=== PATIENT | male | born 1985 | race Caucasian/White ===

== ENCOUNTER 2021-07-20 17:53 | Emergency (ER) | payer OTHER, SELFPAY ==
[2021-07-20 17:57] VITALS: BP 134/83; PULSE 79; RESP 16; TEMP 35.8; O2SAT 97; BMI 29.0
--- NOTE | 2021-07-20 19:37 | RAD_ITS ---
INDICATION: chest pain EXAMINATION/TECHNIQUE: X-RAY - XR Chest 1 View COMPARISON: None. FINDINGS: The lungs are clear. The cardiomediastinal silhouette is unremarkable. No pleural effusion or pneumothorax. No acute osseous abnormalities. RAD/Chest 1 View (Portable) IMPRESSION: No acute radiographic abnormalities. Electronically Signed: Daniel Tello MD at 21:18 EST Tel , Service support ,
--- NOTE | 2021-07-20 19:37 | EKG12_ITS ---
Test Reason : PALPITATIONS Blood Pressure : / mmHG Vent. Rate : 075 BPM Atrial Rate : 075 BPM P-R Int : 164 ms QRS Dur : 096 ms QT Int : 394 ms P-R-T Axes : 053 055 026 degrees QTc Int : 439 ms Normal sinus rhythm T wave abnormality, consider anterior ischemia Abnormal ECG Confirmed by ELDON OSBORN, LORI ([id number]), commissioning editor TAB EARL ([id number]) on 07/23/2021 9:21:52 AM Referred By: MONA Confirmed By:LORI COLÓN MD
[2021-07-20 19:54] VITALS: BP 134/89; PULSE 80; RESP 17; O2SAT 99
[2021-07-20 20:03] LABS: Absolute Lymphocyte Count 1.67 X10^3/uL (0.83-4.51); Absolute Neutrophil Count 5.8 X10^3/uL (2.0-7.7); Basophil# 0.02 X10^3/uL; Basophil% 0.2 % (0-1); Eosinophil# 0.12 X10^3/uL; Eosinophils% 1.5 % (0-5); Hematocrit 43.9 % (40-54); Hemoglobin 14.9 g/dL (13.0-16.5); Lymphocyte # 1.67 X10^3/ul (0.83-4.51); Lymphocyte % 20.7 % (19-41); Mean Corp Hgb Conc 33.9 g/dL (32-36); Mean Corpuscular Hgb 28.7 pg (27.0-32.0); Mean Corpuscular Volume 84.4 fL (80-94); Mean Platelet Vol. 8.6 fl (6.2-12.0); Monocyte# 0.41 X10^3/uL; Monocyte% 5.1 % (0-10); NRBC Flagged by Analyzer 0 % (0-5); Neutrophil % 72.1 % (47-70); Platelet Count 238 K/mm3 (150-450); RBC Distribution Width CV 12.2 % (11.6-14.6); RBC Distribution Width SD 37.5 fl (35.1-43.9); White Blood Count 8.1 K/mm3 (4.4-11.0)
[2021-07-20 20:04] VITALS: O2SAT 100
--- NOTE | 2021-07-20 20:19 | EDS_ITS ---
HPI History of Present Illness Chief Complaint: Palpitations Informant: patient Onset/Context/Timing Onset: Days Current Severity: Mild Maximum Severity: Moderate Narrative Narrative: Patient presents with cough and congestion along with palpitations. He states he was working out last Tuesday, 6 days ago, when he started noticing his heart racing. He stopped for a few minutes and it seemed to go away and he finished what he was doing. That evening after getting home he started feeling like he was getting a cold. He did a home Covid test on Tuesday that was negative and was tested in urgent care yesterday and was negative. His and son also have upper respiratory symptoms. Patient does note a rash to his armpits and groin area that seems to come and go. He reports subjective intermittent fevers. PFSH PFSH Medical History no medical history no medical history Home Medications famotidine [Pepcid] 40 mg PO DAILY #10 tab 07/20/21 [Rx Last Taken Unknown] prednisone 40 mg PO DAILY #8 tab 07/20/21 [Rx Last Taken Unknown] Allergy/AdvReac Type Severity Reaction Status Date / Time cephalexin Allergy Other Verified 07/20/21 17:56 corn AdvReac Food Verified 07/20/21 17:56 Allergy watermelon AdvReac Hives Verified 07/20/21 17:56 Social History Smoking Status: Never smoker ROS ROS ED Constitutional Constitutional ED: Reports fever(s) and subjective; Denies chills Eyes Eyes: Denies change in vision ENT ENT ED: Reports other Details: Congestion ; Denies sore throat Cardiovascular Cardiovascular: Denies chest pain Respiratory/Chest Respiratory/Chest: Reports cough and dyspnea Gastrointestinal Gastrointestinal: Denies abdominal pain, diarrhea, nausea or vomiting Genitourinary Genitourinary ED: Denies dysuria Musculoskeletal Musculoskeletal: Denies back pain Integumentary Reports rash Neurologic Neurologic: Denies headache(s) or weakness Allergic/Immunologic Allergic/Immunologic ED: Denies urticaria EXAM Physical Exam Const Vital Signs: 07/20/21 17:57 07/20/21 19:54 07/20/21 20:04 Temperature 96.4 F L Temperature Source Temporal Pulse Rate 79 80 Respiratory Rate 16 17 Respiratory Effort Normal Non-Labored Blood Pressure 134/83 H 134/89 H Blood Pressure Mean 100 104 Pulse Ox 97 99 100 Oxygen Delivery Method Room Air Room Air Room Air 07/20/21 21:00 Temperature Temperature Source Pulse Rate 76 Respiratory Rate 15 Respiratory Effort Blood Pressure 121/78 H Blood Pressure Mean 92 Pulse Ox 99 Oxygen Delivery Method Room Air Positive well nourished and well developed General Appearance ED: well developed HEENT Reports moist mucous membranes Eyes PERRL and EOMs intact bilaterally Neck supple Chest Wall inspection of chest normal and palpation of chest normal Resp normal respiratory effort and clear to auscultation bilaterally Cardio regular rate and regular rhythm GI normal to inspection, nondistended, normoactive bowel sounds and non-tender Palpation: soft Extremity normal to inspection Neuro oriented x3 Sensorium / Orientation: alert Skin Skin Narrative: Patchy, nonraised, erythematous lesions noted on the arms. No sign of secondary bacterial infection. Does not appear consistent with yeast infection. MDM MDM MDM Narrative Medical decision making narrative: E.g., chest x-ray, lab work obtained. Patient was given Benadryl, Pepcid, Solu-Medrol. Lab Data Attestation: I reviewed the patient's lab results. Labs: Laboratory Results - last 24 hr 07/20/21 07/20/21 07/20/21 19:57 19:57 19:57 WBC 8.1 RBC 5.20 Hgb 14.9 Hct 43.9 MCV 84.4 MCH 28.7 MCHC 33.9 RDW Std Deviation 37.5 RDW Coeff of Miriam 12.2 Plt Count 238 MPV 8.6 Immature Gran % (Auto) 0.400 Neut % (Auto) 72.1 H Lymph % (Auto) 20.7 [place] % (Auto) 5.1 Eos % (Auto) 1.5 Baso % (Auto) 0.2 Absolute Neuts (auto) 5.8 Absolute Lymphs (auto) 1.67 Nucleated RBC % 0 Sodium 138 Potassium 3.8 Chloride 106 Carbon Dioxide 27.0 Anion Gap 5 BUN 10 Creatinine 0.88 Estim Creat Clear Calc 104.72 Est GFR (MDRD) Af Amer 126 Est GFR (MDRD) Non-Af 104 BUN/Creatinine Ratio 11.3 Glucose 148 H Calcium 8.6 Troponin I High Sens 5 TSH 1.85 Radiography Chest X-Ray - ED: 1 View, Read by ED Physician and No Acute Disease Diagnostic Testing: Clinical Impression(s) from Imaging Studies Chest X-Ray 07/20/21 19:37 IMPRESSION: No acute radiographic abnormalities. Electronically Signed: Daniel Tello MD at 21:18 EST Tel , Service support , EKG Initial EKG: Attestation: I personally reviewed and interpreted this EKG as follows: Interpretation: Sinus Rhythm (Sinus at 75 with no acute ischemia.) Treatment and Re-Evaluation Comments:: On repeat evaluation patient resting comfortably. Rash is resolved at this time. Heart rate has been stable in the 70s. I did discuss with the patient that he may have a viral illness that causes rash. He also states that he believes he was exposed to a meal with a lot of cornstarch in it and he does have a corn allergy. He is not sure if this may be causing his rash. Patient will be given Pepcid and prednisone for home. Return instructions provided. Discharge Plan Triage Chief Complaint: Palpitations Other Complaint: Cough Rash ED Provider: Katelyn Martínez Dx/Rx/DC Orders Clinical Impression: Heart palpitations, Rash Instructions: ED Hives (Adult), ED Palpitations Prescriptions: New prednisone 20 mg tablet 40 mg PO DAILY Qty: 8 RF: 0 famotidine [Pepcid] 40 mg tablet 40 mg PO DAILY Qty: 10 RF: 0 Primary Care Provider: Care Physician,No Primary Referrals: Car Hernandez DO [NON-STAFF] - 1-2 Weeks Care Physician,No Primary [Primary Care Provider] - Disposition Disposition: Home, Self Care
[2021-07-20 20:21] LABS: Anion Gap 5 (5-15); BUN 10 mg/dL (7-18); BUN/Creat Ratio 11.3 RATIO (10-20); Calcium,Total 8.6 mg/dL (8.5-10.1); Chloride 106 mmol/L (98-107); Creatinine, Serum 0.88 mg/dL (0.70-1.30); EST Glomerular Filtration Rate 104 mL/min (>60); Est Glom Filt Rate - Afr Amer 126 mL/min (>60); Estimated Creatinine Clearance 104.72 ml/min; Glucose 148 mg/dL (74-106); Potassium 3.8 mmol/L (3.5-5.1); Sodium Level 138 mmol/L (136-145); Troponin-I HS 5 pg/mL (3.0-78.0)
[2021-07-20] MEDS: Famotidine 20 MG Tablet 40 MG PO (20:39)
[2021-07-20] MEDS: MethylPREDNISolone 125 MG/2 ML Vial 80 MG IV (20:43)
[2021-07-20] MEDS: DiphenhydrAMINE 50 MG/ML Syringe 25 MG IV (20:43)
[2021-07-20 20:46] LABS: Thyroid Stim Hormone (TSH) 1.85 uIU/mL (0.358-3.74)
[2021-07-20 21:00] VITALS: BP 121/78; PULSE 76; RESP 15; O2SAT 99
[2021-07-20 22:24] VITALS: BP 122/82; PULSE 71; RESP 18; O2SAT 98
== END 2021-07-20 22:24 | disposition home or self-care (01) ==
PROVIDERS: Emergency Provider Emergency Medicine
DX: R21 Rash and other nonspecific skin eruption (principal); R00.2 Palpitations; R05.9 Cough, unspecified; Z79.52 Long term (current) use of systemic steroids
CPT/HCPCS: 71045; 80048; 84443; 84484; 85025; 93005; 96374; 96375; 99285; A4216